=== PATIENT | female | born 1950 | race Caucasian/White ===

== ENCOUNTER 2017-11-23 12:18 | Outpatient (CLI) | payer MEDICARE, OTHER, SELFPAY ==
[2017-11-23] VITALS (9 sets, daily range): BP systolic 121–143; BP diastolic 70–96; PULSE 64–78; RESP 16–18; TEMP 36.8; O2SAT 94–99
--- NOTE | 2017-11-23 12:23 | DI.RAD.S_ITS ---
PROCEDURE: PAIN L INTERLAMINAR/CAUDAL INJ INDICATIONS: LUMBAR STENOSIS FINDINGS: Fluoroscopic spot filming was performed to verify placement of spinal needles at the L2-L3 level(s), as labeled on the films. Appropriate location(s) of the needle tip(s) was confirmed by injection of iodinated contrast. IMPRESSION: Fluoroscopy for pain management. Dictated by: An Denney M.D. on 11/23/2017 at 16:28 Approved by: An Denney M.D. on 11/23/2017 at 16:29
[2017-11-23] MEDS: MIDAZOLAM 5 MG/5 ML VIAL IV (13:37)
--- NOTE | 2017-11-23 13:39 | P.PCN_ITS ---
Procedures Date/Time Date of procedure: 11/23/17 Time of procedure: 13:37 General Procedure description: POST OP DIAGNOSIS 1. HNP WITH RADICULAR FEATURES, 2. MULTILEVEL CENTRAL STENOSIS, PROCEDURES 1. FLUORSCOPICALLY GUIDED CONTRAST CONTROLLED INTERLAMINAR EPIDURAL STEROID INJECTION - L2/3 PHYSICIAN: DO JIMBO Hawley Althea is referred by Dr. Chow for treatment of HNP/Bilateral Foraminal Stenosis L>R LE symptoms. FINDINGS Multilevel Central Spinal Stenosis with Nerve Root Compression DESCRIPTION OF PROCEDURE Fluoroscopically guided, contrast-controlled L2/3 translaminar epidural steroid injection. Following denial of allergy and review of potential side effects and complications, including, but not necessarily limited to, infection, allergic reaction, local tissue breakdown, temporary as well as permanent nerve injury, paralysis, stroke and possible , the patient indicated that the patient understood and agreed to proceed. An informed consent document was signed by the patient, witnessed by a nurse, and placed in the patient's chart. Additionally, other treatment options including modalities, medications, and physical therapy were reviewed with the patient. Per the patient request, IV conscious sedation was administered via 3mg of Versed to patient comfort. The patient's vital signs were monitored throughout the procedure by both the nurse and the physician without significant fluctuation. The patient remained conversant throughout the procedure. In the prone position, following sterile prep and drape of the lumbar region, the L2/3 translaminar space was identified fluoroscopically. The skin was anesthetized via a 25-gauge, 1.5-inch needle with 1% lidocaine solution. At this point, a 22-gauge short bevel spinal needle was atraumatically introduced and advanced under fluoroscopic guidance into the region of the L2/3 translaminar space. Depth was confirmed on lateral view. Radiological data, including multiple fluoroscopic views of the lumbar spine, reveal a spinal needle at the L2/3 translaminar space. Lateral views then show placement of the needle in the epidural space. Subsequent views show contrast material flowing superiorly and inferiorly in the epidural space. No vascular or intrathecal uptake is observed. At this point, using loss of resistance technique with saline and air, the epidural space was entered. This was confirmed following negative aspiration with injection of approximately 1.5 cc of Isovue 200, showing excellent epidural flow without vascular or intrathecal uptake. At this point, 1 cc of 1 % lidocaine solution combined with 3 cc or 20 mg of dexamethasone and 80mg Depo medrol was injected without incident. The patient was then transferred to the recovery area where they were observed for an appropriate period of time after the injection. The patient reported a VAS score of 6 prior to the procedure and a post-procedure VAS of 0. Total Fluoroscopy Time: 11.8 seconds Total Conscious Sedation Time: 24min POST OP INSTRUCTIONS The patient was provided a Pain Log to continue to record their response to the target-specific procedure prior to follow-up visit with their referring physician. Additionally, specific post-injection care instructions and a contact number to our office were provided if concerns arise regarding possible complications associated with the procedure are suspected. Marco A Rogers DO Complications: none
[2017-11-23] MEDS: LIDOCAINE 1% 20 ML INJ 5 ML INJ (13:45)
[2017-11-23] MEDS: IOPAMIDOL 15 ML VIAL 3 ML INJ (13:45)
[2017-11-23] MEDS: DEXAMETHASONE 10 MG/ML VIAL 20 MG INJ (13:45)
[2017-11-23] MEDS: methylPREDNISolone acetate 80 MG/ML VIAL INJ (13:45)
== END 2017-11-23 14:32 ==
PROVIDERS: Visit Provider Physical Medicine & Rehabilitation
DX: M48.061 Spinal stenosis, lumbar region without neurogenic claudication (principal); M54.12 Radiculopathy, cervical region
CPT/HCPCS: 62323; 99152; J1040; J1100; J2250

== ENCOUNTER → 2020-08-06 13:29 | Outpatient (CLI) | payer MEDICARE, OTHER, SELFPAY ==
[2020-08-06 14:13] LABS: COVID19 -Nasal RAPID Negative (Negative)
== END ==
PROVIDERS: PCP Family Medicine; Visit Provider Physical Medicine & Rehabilitation
DX: Z20.822 Contact with and (suspected) exposure to COVID-19 (principal)
CPT/HCPCS: 87635; C9803

== ENCOUNTER 2020-08-08 14:59 | Outpatient (CLI) | payer MEDICARE, OTHER, SELFPAY ==
[2020-08-08] VITALS (9 sets, daily range): BP systolic 101–134; BP diastolic 60–84; PULSE 65–78; RESP 14–17; TEMP 36.5; O2SAT 94–99
--- NOTE | 2020-08-08 15:04 | DI.RAD.S_ITS ---
PROCEDURE: PAIN L/S FACET INJ/BLK 1ST PHILIP COMPARISON: None. INDICATIONS: SPONDYLOSIS FINDINGS: Fluoroscopic spot filming was performed to verify placement of spinal needles at the L4, L5, S1 level(s), as labeled on the films. Appropriate location(s) of the needle tip(s) was confirmed by injection of iodinated contrast. Dictated by: Pako Hernandez M.D. on 08/08/2020 at 16:33 Approved by: Pako Hernandez M.D. on 08/08/2020 at 16:33
[2020-08-08] MEDS: MIDAZOLAM 5 MG/5 ML VIAL IV (15:34)
[2020-08-08] MEDS: fentaNYL 100 MCG/2 ML INJ 50 MCG IV (15:34)
[2020-08-08] MEDS: IOPAMIDOL 15 ML VIAL 3 ML INJ (15:37)
[2020-08-08] MEDS: BUPIVACAINE 0.5% (PF) VIAL 5 ML INJ (15:37)
[2020-08-08] MEDS: LIDOCAINE 1% 20 ML 10 ML INJ (15:38)
--- NOTE | 2020-08-08 15:48 | P.PCN_ITS ---
Date/Time/Diagnoses Date of procedure: 08/08/20 Time of procedure: 15:48 Pre-procedure diagnosis: 1. FACET ARTHROPATHY Post-procedure diagnosis: same Procedure Notes Procedure: 1. BILATERAL- L4, L5 and S1 DIAGNOSTIC MB BLOCKS with LA Anesthetic Indications: Althea is referred by Dr. Chow for treatment of Bilateral Axial LBP. Physician: Marco A Rogers Total Fluoroscopy time (seconds): 9 Total sedation minutes: 11 Complications: none Procedure in detail & Post-procedure care: DESCRIPTION OF PROCEDURE Fluoroscopically guided, contrast-controlled bilateral L4, L5 and S1 medial branch blocks with 0.5cc of 0.5% Marcaine. Following review of allergy and review of potential side effects and complications, including, but not necessarily limited to, infection, allergic reaction, local tissue breakdown, nerve injury, paralysis, stroke and possible , the patient indicated that the patient understood and agreed to proceed. An informed consent document was signed by the patient, witnessed by a nurse, and placed in the patient's chart. After review of previous anaesthesic history and IV conscious sedation the patient was deemed safe to proceed with today's procedure with IV conscious sedation as ASA class II designation. Safety time-out was performed to confirm patient ID, procedure to be performed and site of procedure. IV sedation was accomplished with a combination of 2mg of Versed and 50mcg of Fentanyl was administered by the RN after DO order, titrated to patient comfort during the course of the procedure while the patient remained responsive to all verbal commands In the prone position, following sterile prep and drape of the lumbar region, the right L4, L5 and S1 anatomical location of the medial branch of the dorsal ramus was identified fluoroscopically. Subsequently an anesthetic skin wheal using 1% lidocaine solution was initiated at each of the anatomical spots. Subsequently then a 22-gauge 3.5-inch spinal needle was atraumatically introduced and advanced under fluoroscopic guidance at each of the corresponding sites at the right L4, L5 and S1 MB. After negative aspiration, 0.2cc of Isovue 200 was injected, confirming placement without vascular or intrathecal uptake. Subsequently then 0.5cc of 0.5% Marcaine solution was injected at each of the corresponding sites at the right L4, L5 and S1 medial branch locations. The identical procedure was replicated on the left. The patient tolerated the procedure well without signs or symptoms of complications prior to transfer to the recovery area continued monitoring without incident. Post-procedure, the patient was monitored initiating provocative activities to measure the amount of relief from block of the facetogenic pain. The patient reported a VAS of 7 prior to the procedure and a post-procedure VAS of 1. It has been a pleasure to assist in the diagnostic and therapeutic care of your patient. POST OP INSTRUCTIONS The patient was provided with a Pain Log to complete over the next several hours and subsequent days prior to the patient's follow up with the ordering physician. If the patient has quality assurance assessor relief to the solution applied, then they may be a candidate for medial branch rhizotomy. The patient is aware, was provided, once again, with a Pain Log and will follow up with the referring physician for review and clinical correlation
== END 2020-08-08 15:10 | disposition home or self-care (01) ==
LOC: RAD 15:03
PROVIDERS: PCP Family Medicine; Referring Provider Physical Medicine & Rehabilitation; Visit Provider Physical Medicine & Rehabilitation
DX: M47.816 Spondylosis without myelopathy or radiculopathy, lumbar region (principal); M47.817 Spondylosis without myelopathy or radiculopathy, lumbosacral region
CPT/HCPCS: 64493; 64494; 99152; J2250; J3010

== ENCOUNTER 2020-10-31 10:34 | Outpatient (CLI) | payer MEDICARE, OTHER, SELFPAY ==
[2020-10-31] VITALS (12 sets, daily range): BP systolic 108–168; BP diastolic 62–85; PULSE 69–76; RESP 12–18; TEMP 36.6; O2SAT 94–98
--- NOTE | 2020-10-31 10:36 | DI.RAD.S_ITS ---
PROCEDURE: PAIN L/S MED/LAT N RFA BILAT INDICATIONS: SPONDYLOSIS COMPARISON: [facility], , PAIN L/S FACET INJ/BLK 1ST PHILIP, 08/08/2020, 15:38. FINDINGS: Fluoroscopic spot filming was performed to verify placement of spinal needles on both sides at the L4, L5, and S1 level(s), as labeled on the films. IMPRESSION: Intraprocedural examination within normal limits. Dictated by: Ralph Hinson M.D. on 10/31/2020 at 11:33 Approved by: Ralph Hinson M.D. on 10/31/2020 at 11:34
--- NOTE | 2020-10-31 11:01 | P.PCN_ITS ---
Date/Time/Diagnoses Date of procedure: 10/31/20 Time of procedure: 11:01 Pre-procedure diagnosis: 1. RECALCITRANT FACET ARTHROPATHY Post-procedure diagnosis: same Procedure Notes Procedure: 1. BILATERAL L4 AND L5 MEDIAL BRANCH RADIOFREQUENCY NEUROTOMY AND S1 DORSAL RAMUS BRANCH RADIOFREQUENCY NEUROTOMY Indications: Althea is referred by for treatment of facet arthropathy. Physician: Marco A Rogers Total Fluoroscopy time (seconds): 16 Total sedation minutes: 33 Complications: none Procedure in detail & Post-procedure care: DESCRIPTION OF PROCEDURE Bilateral L4 and L5 medial branch radiofrequency neurotomy and bilateral S1 dorsal ramus radiofrequency neurotomy under fluoroscopy with conscious sedation. The patient is well known to this clinic having undergone previous facet injections with good but temporary relief. The patient has experienced appropriate, concordant relief with previous facet and median branch blocks but the patient's pain has been recalcitrant to further conservative measures. Therefore, based upon the patient's relief and persistent symptoms, the patient is considered an appropriate candidate for facet rhizotomy. All of the patient's questions regarding the risks versus benefits of the procedure, including, but not limited to, bleeding, infection, temporary as well as lasting nerve injury, paralysis, stroke, and , as well treatment alternatives were answered to satisfaction. After obtaining informed consent, denial of pertinent drug allergies, as well as being made aware of the potential risks of bleeding, infection, spinal cord trauma, paralysis, temporary and permanent nerve damage, seizure, stroke, and possible , the patient was brought to the fluoroscopy suite and positioned prone on the fluoroscopy table. The lumbar region was prepped with Betadine and covered with a fenestrated drape in the usual sterile fashion. Appropriate monitors applied including pulse oximeter, pulse, and blood pressure for regular monitoring throughout the procedure. After review of previous anaesthesic history and IV conscious sedation the patient was deemed safe to proceed with today's procedure with IV conscious sedation as ASA class II designation. Safety time-out was performed to confirm patient ID, procedure to be performed and site of procedure. IV sedation was accomplished with a combination of 4mg of Versed and 50mcg of Fentanyl administered by the RN after DO order, titrated to patient comfort during the course of the procedure while the patient remained responsive to all verbal commands. After local infiltration using 1% lidocaine, under fluoroscopic guidance, a 10- cm RF insulated needle with a 10-mm active tip was positioned parallel to the junction of the right sacral ala and the superior articulating process where the S1 dorsal ramus resides. Needle placement was confirmed with motor stimulation of .5v on the right which produced local stimulation without radicular component. The stimulation was then increased to 2v with, once again, only local multifidus stimulation without radicular component. The needle was then removed and the identical procedure was performed along the length of the right L5 medial branch with motor stimulation at .7v on the right. The identical procedure was once again performed along the length of the right L4 medial branch with motor stimulation of .5v on the right. The medial branches were then anesthetised with 0.5% Marcaine. This was then followed by two discreet lesions performed at 80 degrees Celsius for 90 seconds each. The identical procedure was repeated on the left. The patient tolerated the procedure well without signs or symptoms of complications prior to transfer to the recovery area continued monitoring without incident. The patient was then transferred to the recovery area where they were observed for an appropriate period of time after the injection. The patient reported a VAS score of 9 prior to the procedure and a post-procedure VAS of 0. POST OP INSTRUCTIONS The patient was provided a Pain Log to continue to record the patient's response to the target-specific procedure prior to the patient's follow-up visit with the referring physician. Additionally, specific post-injection care instructions and a contact number to our office were provided if concerns arise regarding possible complications associated with the procedure are suspected.
--- NOTE | 2020-10-31 11:02 | PC.NURSE ---
Patient has negative Covid test done at [facility] n 10/30/19 at 11:32 collection. Patient brought copy with her of results.
[2020-10-31] MEDS: fentaNYL 100 MCG/2 ML INJ 50 MCG IV (11:05)
[2020-10-31] MEDS: BUPIVACAINE 0.5% (PF) VIAL 5 ML INJ (11:08)
[2020-10-31] MEDS: LIDOCAINE 1% 20 ML INJ (11:08)
[2020-10-31] MEDS: MIDAZOLAM 5 MG/5 ML VIAL IV (11:21)
--- NOTE | 2020-10-31 11:31 | PC.NURSE ---
Patient has a spinal cord stimulator, she spoke with Dr Rogers and has placed it in MRI mode
== END 2020-10-31 12:09 | disposition home or self-care (01) ==
PROVIDERS: PCP Family Medicine; Referring Provider Physical Medicine & Rehabilitation; Visit Provider Physical Medicine & Rehabilitation
DX: M47.816 Spondylosis without myelopathy or radiculopathy, lumbar region (principal); M47.817 Spondylosis without myelopathy or radiculopathy, lumbosacral region
CPT/HCPCS: 64635; 64636; 99152; 99153; J2250; J3010

== ENCOUNTER 2021-01-30 12:19 | Outpatient (CLI) | payer MEDICARE, OTHER, SELFPAY ==
[2021-01-30] VITALS (9 sets, daily range): BP systolic 112–166; BP diastolic 75–91; PULSE 59–77; RESP 14–26; TEMP 36.7; O2SAT 95–100
--- NOTE | 2021-01-30 12:22 | DI.RAD.S_ITS ---
PROCEDURE: PAIN L INTERLAMINAR/CAUDAL INJ INDICATIONS: SPONDYLOSIS COMPARISON: [facility], , PAIN L INTERLAMINAR/CAUDAL INJ, 11/23/2017, 13:36. FINDINGS: Fluoroscopic spot filming was performed to verify placement of a spinal needle at the L2-L3 level, as labeled on the films. Appropriate location of the needle tip was confirmed by injection of iodinated contrast. IMPRESSION: Intraprocedural examination within normal limits. Dictated by: Ralph Hinson M.D. on 01/30/2021 at 13:54 Approved by: Ralph Hinson M.D. on 01/30/2021 at 13:55
[2021-01-30] MEDS: MIDAZOLAM 5 MG/5 ML VIAL IV (13:28)
[2021-01-30] MEDS: fentaNYL 100 MCG/2 ML INJ 50 MCG IV (13:28)
--- NOTE | 2021-01-30 13:32 | PC.NURSE ---
negative covid test done 01/28/2021 [facility]
[2021-01-30] MEDS: IOPAMIDOL 15 ML VIAL 3 ML INJ (13:36)
[2021-01-30] MEDS: BUPIVACAINE 0.25% (PF) VIAL 2 ML INJ (13:36)
[2021-01-30] MEDS: BETAMETHASONE 30 MG/5 ML MDV 6 MG INJ (13:37)
[2021-01-30] MEDS: DEXAMETHASONE 10 MG/ML VIAL 20 MG INJ (13:37)
--- NOTE | 2021-01-30 13:41 | P.PCN_ITS ---
Date/Time/Diagnoses Date of procedure: 01/30/21 Time of procedure: 13:41 Pre-procedure diagnosis: 1. HNP WITH RADICULAR FEATURES, 2. MULTILEVEL CENTRAL STENOSIS, Post-procedure diagnosis: same Procedure Notes Procedure: 1. FLUOROSCOPICALLY GUIDED CONTRAST CONTROLLED INTERLAMINAR EPIDURAL STEROID INJECTION - L2/3 Indications: Althea is referred by Dr. Nguyen for treatment of Bilateral Foraminal Stenosis L>R LE symptoms. Physician: Marco A Rogers Total Fluoroscopy time (seconds): 5 Total sedation minutes: 10 Complications: none Procedure in detail & Post-procedure care: FINDINGS Multilevel Central Spinal Stenosis with Nerve Root Compression DESCRIPTION OF PROCEDURE Fluoroscopically guided, contrast-controlled L2/3 translaminar epidural steroid injection. Following review of allergy and review of potential side effects and complications, including, but not necessarily limited to, infection, allergic reaction, local tissue breakdown, temporary as well as permanent nerve injury, paralysis, stroke and possible , the patient indicated that the patient understood and agreed to proceed. An informed consent document was signed by the patient, witnessed by a nurse, and placed in the patient's chart. Additionally, other treatment options including modalities, medications, and physical therapy were reviewed with the patient. After review of previous anaesthesic history and IV conscious sedation the patient was deemed safe to proceed with today?s procedure with IV conscious sedation as ASA class II designation. Safety time-out was performed to confirm patient ID, procedure to be performed and site of procedure. IV sedation was accomplished with a combination of 2mg Versed and 50mcg of Fentanyl administered by the RN after DO order, titrated to patient comfort during the course of the procedure while the patient remained responsive to all verbal commands. In the prone position, following sterile prep and drape of the lumbar region,the L2/3 translaminar space was identified fluoroscopically. The skin was anesthetized via a 25-gauge, 1.5-inch needle with 1% lidocaine solution. At this point, a 22-gauge short bevel spinal needle was atraumatically introduced and advanced under fluoroscopic guidance into the region of the L2/3 translaminar space. Depth was confirmed on lateral view. Radiological data, including multiple fluoroscopic views of the lumbar spine, reveal a spinal needle at the L2/3 translaminar space. Lateral views then show placement of the needle in the epidural space. Subsequent views show contrast material flowing superiorly and inferiorly in the epidural space. No vascular or intrathecal uptake is observed. At this point, using loss of resistance technique with saline and air, the epidural space was entered. This was confirmed following negative aspiration with injection of approximately 1.5 cc of Isovue 200, showing excellent epidural flow without vascular or intrathecal uptake. At this point, 1 cc of 1% lidocaine solution combined with 3cc or 20mg of dexamethasone and 6mg of betamethasone was injected without incident. The patient tolerated the procedure well without signs or symptoms of complicat ions prior to transfer to the recovery area continued monitoring without incident. The patient was then transferred to the recovery area where they were observed for an appropriate period of time after the injection. The patient reported a VAS score of 6 prior to the procedure and a post-procedure VAS of 0. POST OP INSTRUCTIONS The patient was provided a Pain Log to continue to record their response to the target-specific procedure prior to follow-up visit with their referring physician. Additionally, specific post-injection care instructions and a contact number to our office were provided if concerns arise regarding possible complications associated with the procedure are suspected.
--- NOTE | 2021-01-30 13:57 | DI.RAD.S_ITS ---
PROCEDURE: XR HAND RT MIN 3V INDICATIONS: RIGHT THUMB PAIN TECHNIQUE: 3 views of the hand(s) acquired. COMPARISON: None. FINDINGS: Bones: No acute fractures or dislocations. Carpal bones are normally aligned. No suspicious bony lesions. There are mild-moderate degenerative changes of the right thumb metacarpophalangeal and 1st carpometacarpal joints. Small juxta-articular lucencies noted at the proximal right 1st proximal phalanx. Possible juxta-articular lucencies involving the distal interphalangeal and proximal interphalangeal joint of the right 3rd finger. Additional subcortical lucencies noted in the lunate. There is suggestion of ulnar minus variance. Soft tissues: No suspicious soft tissue calcifications. IMPRESSION: Right hand without acute fracture or dislocation. 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 Moderate degenerative changes and hypertrophic osteophytes involving the distal interphalangeal joint of the right middle finger. Small juxta-articular lucencies of the thumb and 3rd finger noted; an inflammatory arthropathy not completely excluded. Small subcortical lucencies of the lunate with suggestion of ulnar minus variance. 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 Dictated by: Reddy Burks M.D. on 01/30/2021 at 15:59 Approved by: Reddy Burks M.D. on 01/30/2021 at 16:04
== END 2021-01-30 14:09 | disposition home or self-care (01) ==
PROVIDERS: PCP Family Medicine; Referring Provider Physical Medicine & Rehabilitation; Visit Provider Physical Medicine & Rehabilitation
DX: M48.061 Spinal stenosis, lumbar region without neurogenic claudication (principal); M79.644 Pain in right finger(s); M51.16 Intervertebral disc disorders with radiculopathy, lumbar region
CPT/HCPCS: 62323; 73130; 99152; J0702; J1100; J2250; J3010